=== PATIENT | male | born 1965 | race Two or more races ===

== ENCOUNTER 2025-03-13 16:49 | Emergency (ER) | payer BC ==
[~2025-03-13] VITALS: Ht 175.3 cm; Wt 83.9 kg
[2025-03-13] MEDS ORDERED: SOTALOL80 MG PO (17:23)
[2025-03-13] MEDS ORDERED: DEXAMETHASONE SODIUM PHOSPHATE 4 MG/ML VIAL IM STA (19:31)
[2025-03-13] MEDS ORDERED: KETOROLAC TROMETHAMINE 60 MG VIAL IM STA (19:31)
[2025-03-13] MEDS ORDERED: ORPHENADRINE CITRATE 30 MG/ML AMPUL IM STA (19:31)
[2025-03-13] MEDS ORDERED: TRAMADOL HCL 50 MG TABLET PO STA (19:32)
[2025-03-13] MEDS ORDERED: DEXAMETHASONE SODIUM PHOSPHATE 4 MG/ML VIAL ONE (19:50)
[2025-03-13] MEDS ORDERED: ORPHENADRINE CITRATE 30 MG/ML AMPUL ONE (19:50)
[2025-03-13] MEDS ORDERED: KETOROLAC TROMETHAMINE 60 MG VIAL IM ONE (19:54)
== END 2025-03-13 20:13 | disposition home or self-care (01) ==
LOC: ER 16:49
DX: M54.41 Lumbago with sciatica, right side (principal)